=== PATIENT | male | born 1935 | race Caucasian/White ===

== ENCOUNTER 2021-04-22 16:00 | Inpatient (IN) | payer MEDICARE ==
[2021-04-22 16:44] LABS: #Monocytes 0.5 10x3/uL (0.0-1.1); #Neutrophils 2.7 10x3/uL (1.5-8.4); %Basophils 0.5 % (0.0-2.0); %Lymphocytes 14.6 % (18.0-47.0); %Monocytes 11.7 % (0.0-10.0); %Neutrophils 71.4 % (40.0-75.0); Hemoglobin 8.6 g/dL (13.5-17.5); Mean Corpuscular HGB CONC 31.2 g/dL (32.0-36.0); Mean Corpuscular Hemoglobin 33.1 pg (27.0-33.0); Mean Corpuscular Volume 106.2 fl (81.2-95.1); Mean Platelet Volume 12.5 fl (7.4-10.4); Platelet Count 103 10x3/uL (150-450); RBC Distribution Width 23.5 % (11.5-14.5); White Blood Cell (WBC) Count 3.8 10x3/uL (3.5-10.5)
[2021-04-22 16:59] LABS: ALT (SGPT) 24 U/L (8-55); AST (SGOT) 25 U/L (5-34); Albumin 3.6 g/dL (3.4-4.8); Alkaline Phosphatase 63 U/L (40-110); Anion Gap 12 mmol/L (10-20); BUN (Urea Nitrogen) 91 mg/dL (8.4-25.7); Bilirubin, Total 1.8 mg/dL (0.2-1.2); Calc. Creatinine Clearance 0 mL/min (70-130); Calcium 8.6 mg/dL (7.8-10.44); Carbon Dioxide 28 mmol/L (23-31); Chloride 101 mmol/L (98-107); Globulin 2.6 g/dL (2.4-3.5); Glucose 132 mg/dL (83-110); Potassium 3.3 mmol/L (3.5-5.1); Protein, Total 6.2 g/dL (5.8-8.1); Sodium 138 mmol/L (136-145)
[2021-04-22 17:08] LABS: Anisocytosis SLIGHT = 6-15 cells (100X) (0-5/hpf); Hypochromia SLIGHT = 6-15 cells (100X) (0-5/hpf); Macrocytosis SLIGHT = 6-15 cells (100X) (0-5/hpf); Platelet Morphology Comment Appears Decreased
[2021-04-22 18:19] LABS: Bilirubin Neg (Negative); Blood, Urine Negative (Negative); Glucose, Urine (Dipstick) Normal (Negative); Ketone, Urine Negative (Negative); Leukocyte Negative (Negative); Nitrite Negative (Negative); Protein, Urine (Dipstick) 30 mg/dl (Neg-Trace); Urobilinogen Normal mg/dL (Less than 2)
[2021-04-22] MEDS ORDERED: Potassium Chloride 20 MEQ TAB ONE (18:38)
[2021-04-22 18:39] LABS: Bacteria/HPF 1+ HPF (None Seen); Clarity Clear (Clear); RBC/HPF None Seen HPF (0-3); Squamous Epithelial 0-3 HPF (0-3); WBC/HPF 0-3 HPF (0-3)
[2021-04-22] MEDS ORDERED: Furosemide 40 MG/4 ML VIAL ONE (18:39)
[2021-04-22] MEDS ORDERED: Loperamide HCl 2 MG CAP PO PRN (19:13)
[2021-04-22] MEDS ORDERED: Ondansetron PF 4 MG/2 ML Vial IVP PRN (19:23)
[2021-04-22 19:30] LABS: INR-International Normal Ratio 2.5; Prothrombin Time 26.6 sec (9.5-12.1)
[2021-04-22 19:53] LABS: Troponin I 0.076 ng/mL (< 0.028)
[2021-04-23] MEDS ORDERED: Pramipexole Di-HCl 0.25 MG TAB PO SCH ×2 (00:45→21:00)
[2021-04-23] MEDS: Loperamide HCl 2 MG CAP PO PRN ×2 (00:56→10:43)
[2021-04-23] MEDS: Sodium Chloride 0.9% 1,000 ML IV SCH ×4 (00:58→23:42)
[2021-04-23] MEDS ORDERED: Gabapentin 300 MG CAP PO SCH (01:00)
[2021-04-23 05:25] VITALS: BMI 65.0
[2021-04-23 05:43] LABS: Mean Corpuscular HGB CONC 31.8 g/dL (32.0-36.0); Mean Corpuscular Hemoglobin 33.6 pg (27.0-33.0); Mean Corpuscular Volume 105.6 fl (81.2-95.1); RBC Distribution Width 23.2 % (11.5-14.5); Red Blood Cell (RBC) Count 2.68 10x6/uL (4.32-5.72)
[2021-04-23 05:49] LABS: INR-International Normal Ratio 2.8
[2021-04-23 06:01] LABS: Troponin I 0.083 ng/mL (< 0.028)
[2021-04-23 06:02] LABS: Anion Gap 15 mmol/L (10-20); BUN (Urea Nitrogen) 96 mg/dL (8.4-25.7); Calc. Creatinine Clearance 70 mL/min (70-130); Calcium 9.1 mg/dL (7.8-10.44); Carbon Dioxide 28 mmol/L (23-31); Chloride 101 mmol/L (98-107); Glucose 116 mg/dL (83-110); Iron 78 ug/dL (65-175); Iron Binding Capacity, Total 304 mcg/dL (261-462); Sodium 141 mmol/L (136-145)
[2021-04-23 06:06] LABS: Iron 83 ug/dL (65-175); Iron Binding Capacity, Total 320 mcg/dL (261-462)
[2021-04-23 06:07] LABS: MDiff Complete? YES
[2021-04-23 07:16] LABS: Platelet Count 82 10x3/uL (150-450)
[2021-04-23 07:22] LABS: Band 12 % (5-11); Eosinophils 3 % (0-10); Lymphocytes 18 % (21-51); Metamyelocyte 1 % (0-0); Monocytes 20 % (0-10); Neutrophil 44 % (42-75); Reactive Lymphocytes 2 % (0-10)
[2021-04-23 07:23] LABS: Anisocytosis MODERATE=16-30 cells (100X) (0-5/hpf); Macrocytosis SLIGHT = 6-15 cells (100X) (0-5/hpf); Platelet Morphology Comment Appears Decreased; Schistocytes SLIGHT = 2-5 cells (100X) (0-1/hpf)
[2021-04-23 07:29] LABS: Ferritin 320.34 ng/mL (22-322)
[2021-04-23] MEDS ORDERED: hydrALAZINE 20 MG/ML VIAL SLOW IVP PRN ×2 (07:31→11:32)
[2021-04-23] MEDS: Metoprolol Tartrate 25 MG TAB PO SCH ×2 (08:22→20:44)
[2021-04-23] MEDS: Allopurinol 300 MG TAB PO SCH (08:22)
[2021-04-23] MEDS ORDERED: Potassium Chloride 20 MEQ TAB PO SCH (11:45)
[2021-04-23] MEDS ORDERED: Warfarin Sodium 2.5 MG TAB PO SCH ×2 (17:00→17:13)
[2021-04-23] MEDS ORDERED: Warfarin Sodium 7.5 MG TAB PO SCH (17:15)
[2021-04-23] MEDS ORDERED: Warfarin Sodium 5 MG TAB PO SCH (18:00)
[2021-04-23] MEDS ORDERED: Loperamide HCl 2 MG CAP PO PRN (18:27)
[2021-04-23] MEDS ORDERED: Loperamide HCl 2 MG CAP PO SCH (18:27)
[2021-04-23] MEDS: hydrALAZINE 25 MG TAB PO SCH (20:43)
[2021-04-23] MEDS ORDERED: Cholestyramine/Aspartame 4 gm Packet PO SCH (21:00)
[2021-04-23] MEDS ORDERED: Tamsulosin HCl 0.4 MG CAP PO SCH (21:00)
[2021-04-23 22:05] LABS: SARS-CoV-2 PCR by NAA Not Detected (NotDetected)
[2021-04-23] MEDS: Diphenoxylate HCl/Atropine Tablet PO PRN (23:41)
[2021-04-24] MEDS ORDERED: Gabapentin 300 MG CAP PO SCH ×2 (00:15→21:00)
[2021-04-24 05:25] LABS: INR-International Normal Ratio 3.9; Prothrombin Time 40.7 sec (9.5-12.1)
[2021-04-24 05:27] LABS: Anion Gap 13 mmol/L (10-20); BUN (Urea Nitrogen) 80 mg/dL (8.4-25.7); Calc. Creatinine Clearance 83 mL/min (70-130); Carbon Dioxide 27 mmol/L (23-31); Chloride 104 mmol/L (98-107); Glucose 99 mg/dL (83-110); Sodium 141 mmol/L (136-145)
[2021-04-24 05:33] LABS: Potassium 2.9 mmol/L (3.5-5.1)
[2021-04-24 06:33] LABS: #Eosinphils 0.1 10x3/uL (0.0-0.5); #Monocytes 0.6 10x3/uL (0.0-1.1); #Neutrophils 2.7 10x3/uL (1.5-8.4); %Basophils 0.7 % (0.0-2.0); %Eosinophils 2.1 % (0.0-6.0); %Lymphocytes 19.2 % (18.0-47.0); %Monocytes 14.8 % (0.0-10.0); %Neutrophils 62.3 % (40.0-75.0); Mean Corpuscular HGB CONC 31.8 g/dL (32.0-36.0); Mean Corpuscular Volume 106.8 fl (81.2-95.1); Platelet Count 85 10x3/uL (150-450); RBC Distribution Width 23.3 % (11.5-14.5); Red Blood Cell (RBC) Count 2.65 10x6/uL (4.32-5.72); White Blood Cell (WBC) Count 4.3 10x3/uL (3.5-10.5)
[2021-04-24 07:12] LABS: Anisocytosis SLIGHT = 6-15 cells (100X) (0-5/hpf); Schistocytes SLIGHT = 2-5 cells (100X) (0-1/hpf)
[2021-04-24] MEDS ORDERED: Potassium Chloride 20 MEQ TAB PO SCH ×2 (07:15→17:30)
[2021-04-24] MEDS ORDERED: Tamsulosin HCl 0.4 MG CAP PO SCH (09:00)
[2021-04-24] MEDS: hydrALAZINE 25 MG TAB PO SCH ×2 (09:55→16:37)
[2021-04-24] MEDS: Allopurinol 300 MG TAB PO SCH (09:56)
[2021-04-24] MEDS: Diphenoxylate HCl/Atropine Tablet PO PRN (09:56)
[2021-04-24] MEDS: Metoprolol Tartrate 25 MG TAB PO SCH (09:57)
[2021-04-24] MEDS ORDERED: Cholestyramine/Aspartame 4 gm Packet PO SCH (12:00)
[2021-04-24 16:41] LABS: Potassium 3.3 mmol/L (3.5-5.1)
[2021-04-24 17:23] VITALS: BP 138/75; TEMP 98.3
== END 2021-04-24 17:45 | disposition home or self-care (01) | DRG 391 ==
LOC: CSHERS 16:00 → CSHTELE 19:13 → UNDOADMIN 04-23 00:39 → CSHTELE 04-23 00:39
PROVIDERS: ADMIT Family Medicine; ATTEND Family Medicine
DX: R19.7 Diarrhea, unspecified (principal); I21.A1 Myocardial infarction type 2; N18.4 Chronic kidney disease, stage 4 (severe); G25.81 Restless legs syndrome; Z20.822 Contact with and (suspected) exposure to COVID-19; G62.9 Polyneuropathy, unspecified; G47.33 Obstructive sleep apnea (adult) (pediatric); I50.9 Heart failure, unspecified; N40.0 Benign prostatic hyperplasia without lower urinary tract symptoms; I48.91 Unspecified atrial fibrillation; Z96.651 Presence of right artificial knee joint; R09.02 Hypoxemia; E87.6 Hypokalemia; D69.6 Thrombocytopenia, unspecified; D53.9 Nutritional anemia, unspecified; M19.90 Unspecified osteoarthritis, unspecified site; M10.9 Gout, unspecified; Z79.01 Long term (current) use of anticoagulants; Z87.891 Personal history of nicotine dependence; Z79.899 Other long term (current) drug therapy
CPT/HCPCS: 36415; 71045; 80048; 80053; 81003; 81015; 82274; 82553; 82607; 82728; 82746; 83540; 83550; 83630; 83735; 83880; 84484; 85025; 85610; 87045; 87046; 87177; 87324; 87427; 87449; 87798; 93005; 93010; 93306; 96374; J1940; J7050; U0003; U0005